=== PATIENT | female | born 1965 | race Two or more races ===

== ENCOUNTER 2024-08-09 17:44 | Emergency (ER) | payer MEDICAID, SELFPAY ==
[2024-08-09 18:02] VITALS: BP 138/79; PULSE 65; RESP 17; TEMP 37; O2SAT 99; BMI 44.4
--- NOTE | 2024-08-09 18:23 | XR_ITS ---
Examination: Knee, left , 3 views Technique: Knee AP, lateral, oblique 3 views Date and time of exam: Her and 1903 hrs. Indications: Patient fell today with injury to the knee, knee pain. 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
--- NOTE | 2024-08-09 18:24 | EDNOTE_ITS ---
Lower Extremity Injury RME/HPI General Chief Complaint: Extremity Injury, Lower Stated Complaint: LEFT KNEE PAIN S/P INJURY Time Seen by Provider: 08/09/24 18:20 Source: patient Arrival date/time: 08/09/24 17:44 59-year-old female with past medical history of prediabetes and hypertension presents emergency department complaining of left knee pain status post injury while walking down steps. Patient reports did not suffer fall but felt her left knee twist as she came downstairs. Patient denies any fever, chills, nausea vomiting, shortness of breath, or any other associated symptom. Mode of arrival: ambulatory Limitations: no limitations Related Data Previous Rx's ?Medication ?Instructions ?Recorded ibuprofen 600 mg tablet 600 mg PO Q8H PRN pain #20 tabs 08/09/24 Allergies Allergy/AdvReac Type Severity Reaction Status Date / Time No Known Allergies Allergy Verified 08/09/24 17:45 Review of Systems Review of Systems Systems Reviewed: All systems reviewed, normal except as documented Constitutional Constitutional: Reports system reviewed and no additional complaints, except as documented, Denies body ache(s), Denies chills and Denies fever(s) Eyes Eyes: Reports system reviewed and no additional complaints, except as documented and Denies change in vision ENT Ears, Nose, Mouth, and Throat: Reports system reviewed and no additional complaints, except as documented, Denies disequilibrium, Denies dizziness, Denies sore throat and Denies vertigo Cardiovascular Cardiovascular: Reports system reviewed and no additional complaints, except as documented, Denies chest pain and Denies dyspnea Respiratory Respiratory: Reports system reviewed and no additional complaints, except as documented, Denies chest congestion, Denies cough and Denies dyspnea Gastrointestinal Gastrointestinal: Reports system reviewed and no additional complaints, except as documented, Denies abdominal pain, Denies nausea and Denies vomiting Musculoskeletal Musculoskeletal: Reports system reviewed and no additional complaints, except as documented, Denies abnormal gait and Reports arthralgias Integumentary/Breasts Skin/Breast: Reports system reviewed and no additional complaints, except as documented, Denies erythema, Denies rash and Denies wounds Neurologic Neurologic: Reports system reviewed and no additional complaints, except as documented, Denies abnormal gait, Denies disequilibrium, Denies dizziness and Denies vertigo Past Medical History Social History SMOKING STATUS: Never smoker ED Exam General Limitations: Present no limitations General appearance: Present alert and in no apparent distress Head Head exam: Present atraumatic Eye Eye exam: Present normal appearance, PERRL and EOMI ENT ENT exam: Present normal exam, normal oropharynx and mucous membranes moist Neck Neck exam: Present normal inspection, full ROM and trachea midline Chest Chest inspection: Present normal inspection and symmetric chest wall rise Respiratory Respiratory exam: Present normal lung sounds bilaterally Cardiovascular Cardiovascular exam: Present regular rate, normal rhythm and normal heart sounds Abdominal Exam Abdominal exam: Present soft and normal bowel sounds Extremities Exam Extremities exam: Present normal inspection and full ROM Expanded Lower Extremity Exam Knee exam: Present full ROM (Limited active range of motion left knee.), tenderness (Left knee) and swelling (+1 left knee) Gait: observed and limited by pain Back Exam Back exam: Present normal inspection and full ROM Neurological Exam Neurological exam: Present alert, oriented X3 and CN II-XII intact Psychiatric Psychiatric exam: Present normal affect and normal mood Skin Skin exam: Present warm, dry, intact and normal color Course Quality Measures none Orders Category Date Time Status XR knee comp LT 4V Stat Exams 08/09/24 18:23 Completed Ibuprofen Tab [Motrin Tab] Med 08/09/24 18:23 Discontinued 600 mg PO X1 ONE Vital Signs Vital signs: Vital Signs Temperature 98.6 F 08/09/24 18:02 Pulse Rate 65 08/09/24 18:02 Respiratory Rate 17 08/09/24 18:02 Blood Pressure 138/79 H 08/09/24 18:02 Pulse Oximetry (%) 99 08/09/24 18:02 Oxygen Delivery Method Room Air 08/09/24 18:02 99% room air within normal limits Extremity Injury, Lower MDM Narrative MDM Narrative:: 59-year-old female with past medical history of prediabetes and hypertension presents emergency department complaining of left knee pain status post injury while walking down steps. Patient reports did not suffer fall but felt her left knee twist as she came downstairs. Patient denies any fever, chills, nausea vomiting, shortness of breath, or any other associated symptom. Patient GCS 15 ambulating independently with steady gait but does report some pain. Left lower extremity limited active range of motion and lower extremity neurovascularly intact. X-ray of left knee findings left knee effusion with soft tissue swelling. Patient has knee brace from home and declined crutches or knee immobilizer. Patient instructed to follow-up with primary care provider and request MRI for possible ligamentous or meniscus injury. Instructed to return to emergency department for any worsening symptoms or as needed. Patient data External records reviewed:: None Clinical information provided by:: patient and family Social determinants that could affect healthcare access:: none Patient has the following chronic illnesses:: See chart How is presenting disease/condition affected by chronic disease/condition?: uneffected by Evaluation data The following diagnostics were reviewed and interpreted by me:: radiology exam(s) Lab and/or radiology exams considered but not ordered:: Ordered Interpretation Summary: Interpreted by me Medications / Prescriptions Medications or Prescriptions considered but not ordered:: Ordered Medication administrations:: Medication Administration History Discontinued Medications Ibuprofen (Ibuprofen Tab 600 Mg Tablet) 600 mg PO X1 ONE Stop: 08/09/24 18:24 Last Admin: 08/09/24 18:37 Dose: 600 mg Documented By: OA Given Consultations Consultation(s) initiated? (list below): No Diagnosis Extremity Injury, Lower Differential Diagnosis: acute internal derangement of knee and other (Meniscus tear, ligament tear) Most likely diagnosis given after review of the tests above:: Knee sprain Knee effusion Admission Indicated Admission indicated?: not indicated Admission Request Was there a request for admission?: No Disposition Plan Disposition Plan: Discharge Discharge Attestation Discharge Attestation: The patient and all family members were given an opportunity to ask questions and understood the discharge instructions. Discharge instructions specifically effects, indications for sooner follow up or return to the emergency department, and the expected course of current diagnosis. Patient condition: Stable Discharge Plan Plan Patient Disposition: HOME (Self Care) Disposition Comment: Stable Prescriptions/Referrals Prescriptions/Med Rec: New ibuprofen 600 mg tablet 600 mg PO Q8H PRN (Reason: pain) Qty: 20 0RF Referrals: Dewayne ([facility])Kiya PA-C [Primary Care Provider] - In 1 week Problem List Clinical Impression: Knee effusion, left, Left knee sprain Patient/Caregiver Discharge Instructions Discharge Activity: activity as tolerated Education Materials: ED Knee Effusion, ED Knee Sprain Additional Instructions: Take ibuprofen as needed for pain. Keep using knee brace as tolerated. Follow- up with primary care provider in 2 to 3 days and request MRI of left knee if symptoms persist. Return to emergency department for any worsening symptoms or as needed. Print Language: Malay Stand Alone Forms: Fariha Award Info., Patient Portal Info Letter DAYDAY/RESIDENT CARE ASSOCIATE Supervising Physician DAYDAY/RESIDENT CARE ASSOCIATE Supervising Physician: Dr. Kumar
[2024-08-09] MEDS: IBUPROFEN TAB 600 MG TABLET PO (18:37)
== END 2024-08-09 20:16 | disposition home or self-care (01) ==
PROVIDERS: Emergency Provider Emergency Medicine; PCP Physician Assistant
DX: S83.92XA Sprain of unspecified site of left knee, initial encounter (principal); X50.1XXA Overexertion from prolonged static or awkward postures, initial encounter; Y93.01 Activity, walking, marching and hiking
CPT/HCPCS: 73562; 73564; 99283; A9270

== ENCOUNTER → 2024-10-04 | Outpatient (CLI) | payer MEDICAID, SELFPAY ==
--- NOTE | 2024-10-04 07:30 | XR_ITS ---
Exam: MRI knee without contrast, left Date and time of exam: October 04, 2024 0742 hours INDICATIONS: Patient fell off a ladder August 08, 2024 with injury to the knee, increasing knee pain and instability joint pain swelling stiffness decreased range of motion Technique: Multiple axial, coronal, and sagittal sections on the knee have been obtained. T2-Weighted sagittal, fat-suppressed images, TR 3,500, TE 62, T2 weighted coronal fat-saturated images, TR 3,500, TE 62 Proton density sagittal sections, TR 1800, TE 31. T-1 weighted coronal images, TR 524, TE 13.0 Findings: Medial meniscus anterior horn horizontal linear tear communicating inner margin. Medial meniscus, body replaced by isointense signal and extruded from the joint space, truncation intermargin. Posterior horn medial meniscus truncation inner margin, oblique linear tear communicating inferior articular surface near the inner margin. Lateral meniscus anterior horn is intact Lateral meniscus, body is intact Posterior horn lateral meniscus is intact Anterior cruciate ligament high-grade sprain Posterior cruciate ligament appears intact. Knee effusion is small. Quadriceps and patellar tendons appear intact. There is no evidence of tendinosis. Inflammatory change or fracture of Hoffa's fat pad is not seen. Medial patellar facet demonstrates moderate thinning. Lateral patellar facet cartilage demonstrates moderate thinning. Trochlear cartilage demonstrates moderate thinning. Marrow signal adequate. Medial collateral ligament appears intact. No meniscocapsular separation is seen. Illiotibial band and fibular collateral ligament are intact. Biceps femoris tendons appear intact. Medial femoral condylar articular cartilage demonstrates severe thinning. Lateral femoral condylar articular cartilage demonstratesmoderate thinning. Tibial plateau cartilage demonstrates severe medial thinning. Impression: Extensive medial meniscus tears High-grade sprain anterior cruciate ligament Severe thinning cartilage medial joint space
== END | disposition home or self-care (01) ==
PROVIDERS: PCP Nurse Practitioner Primary Care; Referring Provider Nurse Practitioner Primary Care; Visit Provider Nurse Practitioner Primary Care
DX: S83.242A Other tear of medial meniscus, current injury, left knee, initial encounter (principal); S83.512A Sprain of anterior cruciate ligament of left knee, initial encounter; X58.XXXA Exposure to other specified factors, initial encounter; M25.862 Other specified joint disorders, left knee
CPT/HCPCS: 73721

== ENCOUNTER → 2024-12-09 | Outpatient (CLI) | payer MEDICAID, SELFPAY ==
--- NOTE | 2024-12-09 09:45 | XR_ITS ---
Examination: Screening digital mammography, bilateral Computer aided detection 3-D breast Tomosynthesis, bilateral Date and time of exam: December 09, 2024 0950 hours No priors Indication: Screening Technique: Nonmagnified MLO, CC views of the breasts to been obtained, reconstructed from 3-D Tomosynthesis images. R2 computer aided detection program utilized for evaluation of suspicious masses and/or abnormal calcifications. 3-D Tomosynthesis images obtained. Findings: Scattered areas of fibroglandular density Benign calcifications including benign vascular calcifications. No suspicious masses Impression: BI-RADS category II: Benign Findings. Recommend 1 year follow-up mammogram.
== END | disposition home or self-care (01) ==
LOC: CDIM 09:36
PROVIDERS: PCP Nurse Practitioner Primary Care; Referring Provider Nurse Practitioner Primary Care; Visit Provider Nurse Practitioner Primary Care
DX: Z12.31 Encounter for screening mammogram for malignant neoplasm of breast (principal); R92.323 Mammographic fibroglandular density, bilateral breasts; R92.1 Mammographic calcification found on diagnostic imaging of breast
CPT/HCPCS: 77063; 77067

== ENCOUNTER 2025-01-20 13:23 | Outpatient (AMB) | payer MEDICAID, SELFPAY ==
--- NOTE | 2025-01-20 13:44 | PD.ORTHCLVIS ---
Vital signs 01/20/25 13:45 Height 1.5 m Height Method Stated Weight 90.832 kg Weight Measurement Method Standing Scale BMI 40.4 BP 124/85 H Blood Pressure Source Automatic Cuff Blood Pressure Location Left Upper Arm Position Sitting Respiration 19 Pulse 62 Pulse Source Monitor Temp 97.8 F Temp Source Temporal Artery Scan Pulse Oximetry (%) 96 Oxygen Delivery Method Room Air Med/Allergies Allergies & Medications Allergies No Known Allergies Allergy (Verified 01/20/25 13:46) Medication Reconciliation ibuprofen 600 mg tablet 600 mg PO Q8H PRN pain #20 tabs 08/09/24 [Rx Confirmed 01/20/25] calcium carbonate 600 mg PO QDAY 01/20/25 [History Confirmed 01/20/25] fenofibrate micronized 130 mg capsule 130 mg PO QDAY 01/20/25 [History Confirmed 01/20/25] ibuprofen 600 mg tablet 600 mg PO Q8H PRN 01/20/25 [History Confirmed 01/20/25] lidocaine 4 % topical patch (AsperFlex (lidocaine)) 1 patch topical BID PRN 01/20/25 [History Confirmed 01/20/25] Exam Exam Patient is in no acute distress and is cooperative with the examination today. Breathing is nonlabored. Patient has a normal mood and affect. Bilateral extremities were evaluated and demonstrates sensation intact to light touch. Palpable pedal pulses are present. No significant edema is present. Bilateral hips were examined. The patient has no pain with log roll of the hips. Internal rotation to 30 degrees and external rotation to 30 degrees is painless. Negative FADIR. Right knee was examined today. The right knee is in reasonable alignment. Range of motion from 0-120 degrees. Knee is stable to varus and valgus as well as AP translation with <5mm. Patient has a negative McMurrays. There is no pain with patellofemoral compression and no crepitus noted. The knee is nontender to palpation. Left knee was examined today. The left knee is in varus alignment. Range of motion from 0-115 degrees. Knee is stable to varus and valgus as well as AP translation with <5mm. Patient has a negative McMurrays. There is no pain with patellofemoral compression and no crepitus noted. The knee is tender to palpation medially. Left kneeX-rays demonstrate significant arthritis medially. These are nonweightbearing films Assessment and Plan Problem List (1) Arthritis of left knee: Status: Acute Plan: Patient is a pleasant 59-year-old female with left knee pain and left knee arthritis. She needs weightbearing films. We will likely do conservative management. I will get her set up for cortisone injections at the next visit. Clarification that No cortisone injection was given as the patient would like to hold off and needs authorization Office Procedures GNS Level of Care Nursing/Assessment Patient Status: Initial/New Patient Nursing Assessment/Reassesment: Medication Reconciliation, Update PMH in EMR and Vital Signs Coordination of Care: Complex Care and Chronic Disease 1-5, Education Complex Pt/Fam, Consent,records obtained, informed consent, 1 Ins Authorization, Lab and Imaging orders, Results/Orders obtained and Staff clarify orders New Patient Charge New Patient Point Assignment: 1124 New Patient Point Charge: CHIEF ULTRASOUND TECHNOLOGIST Level 4 ([id number]) MA Intake Visit Data Collection New Patient or Established: Established Patient (seen at [facility] within 3 years) Reason for Visit:: LEFT KNEE PAIN Seen by Clinical Staff ONLY (RN/MA): No Verbal consent obtained for Telemed visit?: No Inventory Assistant Required: No PCP or OBGYN visit in last 3 months: Yes Hx Now: No Do You Feel Safe at Home: Yes Authorities Contacted: N/A Questionairres Past Medical History Past Medical History Have you ever been diagnosed with any of the following: Subjective Visit Visit for: new patient and knee Immunization / Flu Flu Vaccine in the Last 12 Months: Yes Flu Vaccine Exclusion Criteria: Already Received History of Present Illness Chief complaint: LEFT KNEE PAIN Patient is a pleasant 59-year-old female with a left knee pain and left knee arthritis. This is been ongoing for several years. He has tried medications and anti-inflammatories only. Has not had any injections, physical therapy, or any home exercises. She reports that her ambulation is getting severely limited because of the pain Personal History Red flag PMH: BMI BMI Counceling provided: Yes Pain Pain level (0-10): 8 Pain duration: ALL DAY Pain location: inside (medial), outside (lateral) and anterior Pain quality: sharp, dull and aching Pain timing: night, increases with activity and stairs Associated signs & symptoms: numbness and weakness Ambulatory data Ambulatory device: none Treatments Improvement with previous injections: No Improvement with PT: No Improvement with NSAIDS: no Review of Systems Review of Systems: All systems negative unless otherwise noted in HPI.
[2025-01-20 13:45] VITALS: BP 124/85; PULSE 62; RESP 19; TEMP 36.6; O2SAT 96; BMI 40.4
--- NOTE | 2025-01-20 14:00 | XR_ITS ---
Examination: Left knee 4 views TECHNIQUE: Standing PA oblique lateral axial left knee 4 views Exam date and time: January 20, 2025 1411 hours INDICATIONS: Left knee pain 5 months. FINDINGS: Advanced narrowing medial joint space left knee Significant osteoarthritis lateral and patellofemoral joints No patellar dislocation IMPRESSION: Advanced tricompartment osteoarthritis
== END 2025-01-20 14:03 | disposition home or self-care (01) ==
LOC: HODSRG 13:23
PROVIDERS: PCP Nurse Practitioner Primary Care; Referring Provider Nurse Practitioner Primary Care; Supervising Provider Orthopaedic Surgery Adult Reconstructive Orthopaedic Surgery; Visit Provider Orthopaedic Surgery Adult Reconstructive Orthopaedic Surgery
DX: M17.12 Unilateral primary osteoarthritis, left knee (principal); M25.562 Pain in left knee
CPT/HCPCS: 73564; 99204; G0463

== ENCOUNTER 2025-02-03 08:30 | Outpatient (AMB) | payer MEDICAID, SELFPAY ==
[2025-02-03 08:42] VITALS: BP 121/79; PULSE 58; RESP 18; TEMP 37.1; O2SAT 96; BMI 40.7
--- NOTE | 2025-02-03 08:42 | PD.ORTHCLVIS ---
Vital signs 02/03/25 08:42 Height 1.5 m Height Method Stated Weight 91.739 kg Weight Measurement Method Standing Scale BMI 40.7 BP 121/79 Blood Pressure Source Automatic Cuff Blood Pressure Location Right Upper Arm Position Sitting Respiration 18 Pulse 58 L Pulse Source Monitor Temp 98.7 F Temp Source Temporal Artery Scan Pulse Oximetry (%) 96 Oxygen Delivery Method Room Air Med/Allergies Allergies & Medications Allergies No Known Allergies Allergy (Verified 02/03/25 08:43) Medication Reconciliation ibuprofen 600 mg tablet 600 mg PO Q8H PRN pain #20 tabs 08/09/24 [Rx Confirmed 02/03/25] calcium carbonate 600 mg PO QDAY 01/20/25 [History Confirmed 02/03/25] fenofibrate micronized 130 mg capsule 130 mg PO QDAY 01/20/25 [History Confirmed 02/03/25] ibuprofen 600 mg tablet 600 mg PO Q8H PRN 01/20/25 [History Confirmed 02/03/25] lidocaine 4 % topical patch (AsperFlex (lidocaine)) 1 patch topical BID PRN 01/20/25 [History Confirmed 02/03/25] Exam Exam Patient is in no acute distress and is cooperative with the examination today. Breathing is nonlabored. Patient has a normal mood and affect. Bilateral extremities were evaluated and demonstrates sensation intact to light touch. Palpable pedal pulses are present. No significant edema is present. Bilateral hips were examined. The patient has no pain with log roll of the hips. Internal rotation to 30 degrees and external rotation to 30 degrees is painless. Negative FADIR. Right knee was examined today. The right knee is in reasonable alignment. Range of motion from 0-120 degrees. Knee is stable to varus and valgus as well as AP translation with <5mm. Patient has a negative McMurrays. There is no pain with patellofemoral compression and no crepitus noted. The knee is nontender to palpation. Left knee was examined today. The left knee is in varus alignment. Range of motion from 0-115 degrees. Knee is stable to varus and valgus as well as AP translation with <5mm. Patient has a negative McMurrays. There is no pain with patellofemoral compression and no crepitus noted. The knee is tender to palpation medially. Left kneeX-rays demonstrate significant arthritis medially. There is significant varus deformity as well Assessment and Plan Problem List (1) Arthritis of left knee: Status: Acute Plan: Patient is a pleasant 59-year-old female with left knee pain and left knee arthritis. We discussed cortisone injections as well as weight loss. She has tried anti-inflammatories and has not had great relief Recommend knee cortisone injection as patient would like to proceed with conservative treatment at this time. The risks and benefits of the procedure were reviewed with the patient and patient gave verbal consent to continue with the procedure. Procedure: performed by Dr. Block Using sterile technique the left knee was thoroughly prepped with alcohol, and approximately 1 cc of Kenalog 40 mg/mL and 4 cc of 1% lidocaine was injected without resistance into the medial tibial femoral joint space. The patient tolerated the procedure. Office Procedures GNS Level of Care Nursing/Assessment Patient Status: Established Patient Nursing Assessment/Reassesment: Medication Reconciliation, Update PMH in EMR and Vital Signs Coordination of Care: Complex Care and Chronic Disease 1-5, Education Complex Pt/Fam, Consent,records obtained, informed consent, Results/Orders obtained and Staff clarify orders Special Needs: Language special needs (EMIRATI ) Established Patient Charge Established Patient Point Assignment: 95 Established Patient Point Charge: EP Level 3 (80-115) Surgical Proc/IM SQ injection Major Surgical Procedure: Yes (KNEE INJECTION) Medication Given Medication Given Medication Given: Yes Documented Dose Given: 4 Route: Infiitration Medication Given Medication Given Medication Given: Yes Documented Dose Given: 1 Route: Infiitration Office Meds Xylocaine 10 mg/mL (1 %) injection solution Performing Provider: Agus Block MD Performing Location: [facility] Administered by: Agus Block MD on 02/03/25 08:58 Dose Route Admin Location Dispensed Lot Number Expiration Date [facility] Quality Systems Technician 20 mL Infiltration 20 mL [id number] 06/21/28 89230-504-56 [employer] triamcinolone acetonide 40 mg/mL suspension for injection Performing Provider: Agus Block MD Performing Location: [facility] Administered by: Agus Block MD on 02/03/25 08:58 Dose Route Admin Location Dispensed Lot Number Expiration Date [facility] Quality Systems Technician 40 mg Infiltration KNEE 1 mL [id number] 09/20/26 0104-1826-91 TEVA PARENTERAL MA Intake Visit Data Collection New Patient or Established: Established Patient (seen at [facility] within 3 years) Reason for Visit:: FU XRAYS/LT KNEE INJECTION Seen by Clinical Staff ONLY (RN/MA): No Assistant Signal Maintainer Required: Yes PCP or OBGYN visit in last 3 months: Yes Hx Now: No Do You Feel Safe at Home: Yes Authorities Contacted: N/A Questionairres Past Medical History Past Medical History Have you ever been diagnosed with any of the following: Respiratory Problems Smoking: No Smoking Cessation Counseling: No Smoking Exposure: No Tobacco Use: No Subjective Visit Visit for: follow up visit and knee (LEFT KNEE ) Immunization / Flu Flu Vaccine in the Last 12 Months: Yes Flu Vaccine Exclusion Criteria: Already Received History of Present Illness Chief complaint: Left knee pain Patient is a pleasant 59-year-old female with a left knee pain and left knee arthritis. This is been ongoing for several years. He has tried medications and anti-inflammatories only. Has not had any injections, physical therapy, or any home exercises. She reports that her ambulation is getting severely limited because of the pain. Personal History Red flag PMH: none BMI Counceling provided: Yes Pain Pain level (0-10): 8 Pain duration: 5 MONTHS Pain location: anterior and posterior Pain quality: sharp and burning Pain timing: increases with activity Associated signs & symptoms: numbness, weakness and stiffness Ambulatory data Ambulatory device: none Walking distance (minutes): 20 Treatments Improvement with previous injections: No Improvement with PT: No Improvement with NSAIDS: no Review of Systems Review of Systems: All systems negative unless otherwise noted in HPI.
== END 2025-02-03 08:58 | disposition home or self-care (01) ==
PROVIDERS: PCP Nurse Practitioner Primary Care; Referring Provider Nurse Practitioner Primary Care; Supervising Provider Orthopaedic Surgery Adult Reconstructive Orthopaedic Surgery; Visit Provider Orthopaedic Surgery Adult Reconstructive Orthopaedic Surgery
DX: M17.12 Unilateral primary osteoarthritis, left knee (principal); M25.562 Pain in left knee
CPT/HCPCS: 20610; 99213; J3301; J3490; G0463

== ENCOUNTER 2025-05-24 09:14 | Outpatient (AMB) | payer MEDICAID, SELFPAY ==
--- NOTE | 2025-05-24 09:23 | PD.ORTHCLVIS ---
Vital signs 05/24/25 09:48 Height 1.5 m Height Method Measured Weight 83.092 kg Weight Measurement Method Standing Scale BMI 36.9 BP 113/77 Blood Pressure Source Automatic Cuff Blood Pressure Location Left Upper Arm Position Sitting Respiration 20 Pulse 56 L Pulse Source Monitor Temp 97.3 F Temp Source Temporal Artery Scan Pulse Oximetry (%) 98 Oxygen Delivery Method Room Air Med/Allergies Allergies & Medications Allergies No Known Allergies Allergy (Verified 05/24/25 09:48) Medication Reconciliation ibuprofen 600 mg tablet 600 mg PO Q8H PRN pain #20 tabs 08/09/24 [Rx Confirmed 05/24/25] calcium carbonate 600 mg PO QDAY 01/20/25 [History Confirmed 05/24/25] fenofibrate micronized 130 mg capsule 130 mg PO QDAY 01/20/25 [History Confirmed 05/24/25] ibuprofen 600 mg tablet 600 mg PO Q8H PRN 01/20/25 [History Confirmed 05/24/25] lidocaine 4 % topical patch (AsperFlex (lidocaine)) 1 patch topical BID PRN 01/20/25 [History Confirmed 05/24/25] Exam Exam Patient is in no acute distress and is cooperative with the examination today. Breathing is nonlabored. Patient has a normal mood and affect. Bilateral extremities were evaluated and demonstrates sensation intact to light touch. Palpable pedal pulses are present. No significant edema is present. Bilateral hips were examined. The patient has no pain with log roll of the hips. Internal rotation to 30 degrees and external rotation to 30 degrees is painless. Negative FADIR. Right knee was examined today. The right knee is in reasonable alignment. Range of motion from 0-120 degrees. Knee is stable to varus and valgus as well as AP translation with <5mm. Patient has a negative McMurrays. There is no pain with patellofemoral compression and no crepitus noted. The knee is nontender to palpation. Left knee was examined today. The left knee is in varus alignment. Range of motion from 0-115 degrees. Knee is stable to varus and valgus as well as AP translation with <5mm. Patient has a negative McMurrays. There is no pain with patellofemoral compression and no crepitus noted. The knee is tender to palpation medially. Left knee X-rays demonstrate significant arthritis medially. There is significant varus deformity as well Assessment and Plan Problem List (1) Arthritis of left knee: Status: Acute Plan: Patient is a pleasant 59-year-old female with left knee pain and left knee arthritis. We discussed cortisone injections as well as weight loss. She has tried anti-inflammatories and has not had great relief Recommend knee cortisone injection as patient would like to proceed with conservative treatment at this time. The risks and benefits of the procedure were reviewed with the patient and patient gave verbal consent to continue with the procedure. Procedure: performed by Dr. Block Using sterile technique the left knee was thoroughly prepped with alcohol, and approximately 1 cc of Depo-Medrol 80mg/mL and 4 cc of 0.2% ropivacaine was injected without resistance into the medial tibial femoral joint space. The patient tolerated the procedure. Office Procedures GNS Level of Care Nursing/Assessment Patient Status: Established Patient Nursing Assessment/Reassesment: Medication Reconciliation, Orthostatic Vitals, Update PMH in EMR and Vital Signs Coordination of Care: Complex Care and Chronic Disease 1-5, Education Complex Pt/Fam, Consent,records obtained, informed consent, Results/Orders obtained and Staff clarify orders Special Needs: Language special needs Established Patient Charge Established Patient Point Assignment: 105 Established Patient Point Charge: EP Level 3 (80-115) Surgical Proc/IM SQ injection Major Surgical Procedure: Yes (KNEE INJECTION ) Medication Given Medication Given Medication Given: Yes Documented Dose Given: 1 Route: Infiitration Medication Given Medication Given Medication Given: Yes Documented Dose Given: 4 Route: Infiitration Office Meds methylprednisolone acetate 80 mg/mL suspension for injection Performing Provider: Agus Block MD Performing Location: [facility] Administered by: Agus Block MD on 05/24/25 10:21 Dose Route Admin Location Dispensed Lot Number Expiration Date [facility] [employer] 80 mg intra-articular KNEE 1 mL [id number] 02/19/27 [address]-2 [employer] ropivacaine (PF) 2 mg/mL (0.2 %) injection solution Performing Provider: Agus Block MD Performing Location: [facility] Administered by: Agus Block MD on 05/24/25 10:21 Dose Route Admin Location Dispensed Lot Number Expiration Date [facility] [employer] 20 mL Infiltration KNEE 20 mL [id number] 10/22/27 85084-658-94 [facility] Intake Visit Data Collection New Patient or Established: Established Patient (seen at [facility] within 3 years) Reason for Visit:: LEFT KNEE INJECTION Seen by Clinical Staff ONLY (RN/MA): No Park Services Specialist Required: Yes PCP or OBGYN visit in last 3 months: Yes Hx Now: No Do You Feel Safe at Home: Yes Authorities Contacted: N/A Questionairres Past Medical History Past Medical History Have you ever been diagnosed with any of the following: Respiratory Problems Smoking: No Smoking Cessation Counseling: No Smoking Exposure: No Tobacco Use: No Subjective Visit Visit for: follow up visit and knee Immunization / Flu Flu Vaccine in the Last 12 Months: Yes Flu Vaccine Exclusion Criteria: Already Received History of Present Illness Chief complaint: LEFT KNEE INJECTION Patient is a pleasant 59-year-old female with a left knee pain and left knee arthritis. This is been ongoing for several years. He has tried medications and anti-inflammatories only. She has had one injection, physical therapy, or any home exercises. She reports that her ambulation is getting severely limited because of the pain. Personal History Red flag PMH: none BMI Counceling provided: Yes Pain Pain level (0-10): 8 Pain duration: 5 MONTHS Pain location: anterior and posterior Pain quality: sharp and burning Pain timing: increases with activity Associated signs & symptoms: numbness, weakness and stiffness Ambulatory data Ambulatory device: none Walking distance (minutes): 20 Treatments Number of previous injections: 1 Improvement with previous injections: Yes Improvement with PT: No Improvement with NSAIDS: no Review of Systems Review of Systems: All systems negative unless otherwise noted in HPI.
[2025-05-24 09:48] VITALS: BP 113/77; PULSE 56; RESP 20; TEMP 36.3; O2SAT 98; BMI 36.9
== END 2025-05-24 10:20 | disposition home or self-care (01) ==
LOC: HODSRG 09:14
PROVIDERS: PCP Nurse Practitioner Primary Care; Referring Provider Nurse Practitioner Primary Care; Supervising Provider Orthopaedic Surgery Adult Reconstructive Orthopaedic Surgery; Visit Provider Orthopaedic Surgery Adult Reconstructive Orthopaedic Surgery
DX: M17.12 Unilateral primary osteoarthritis, left knee (principal); M25.562 Pain in left knee
CPT/HCPCS: 20610; 99213; J1010; J2795; G0463

== ENCOUNTER 2025-08-25 10:42 | Outpatient (AMB) | payer MEDICAID, SELFPAY ==
--- NOTE | 2025-08-25 11:31 | ORTHONT_ITS ---
Vital signs 08/25/25 11:32 Height 1.5 m Height Method Measured Weight 78.698 kg Weight Measurement Method Standing Scale BMI 34.9 BP 120/76 Blood Pressure Source Automatic Cuff Blood Pressure Location Left Upper Arm Position Sitting Respiration 20 Pulse 53 L Pulse Source Monitor Temp 97.8 F Temp Source Temporal Artery Scan Pulse Oximetry (%) 98 Oxygen Delivery Method Room Air Med/Allergies Allergies & Medications Allergies No Known Allergies Allergy (Verified 08/25/25 11:33) Medication Reconciliation ibuprofen 600 mg tablet 600 mg PO Q8H PRN pain #20 tabs 08/09/24 [Rx Confirmed 08/25/25] calcium carbonate 600 mg PO QDAY 01/20/25 [History Confirmed 08/25/25] fenofibrate micronized 130 mg capsule 130 mg PO QDAY 01/20/25 [History Confirmed 08/25/25] ibuprofen 600 mg tablet 600 mg PO Q8H PRN 01/20/25 [History Confirmed 08/25/25] lidocaine 4 % topical patch (AsperFlex (lidocaine)) 1 patch topical BID PRN 01/20/25 [History Confirmed 08/25/25] Exam Exam Patient is in no acute distress and is cooperative with the examination today. Breathing is nonlabored. Patient has a normal mood and affect. Bilateral extremities were evaluated and demonstrates sensation intact to light touch. Palpable pedal pulses are present. No significant edema is present. Bilateral hips were examined. The patient has no pain with log roll of the hips. Internal rotation to 30 degrees and external rotation to 30 degrees is painless. Negative FADIR. Right knee was examined today. The right knee is in reasonable alignment. Range of motion from 0-120 degrees. Knee is stable to varus and valgus as well as AP translation with <5mm. Patient has a negative McMurrays. There is no pain with patellofemoral compression and no crepitus noted. The knee is nontender to palpation. Left knee was examined today. The left knee is in varus alignment. Range of motion from 0-115 degrees. Knee is stable to varus and valgus as well as AP translation with <5mm. Patient has a negative McMurrays. There is no pain with patellofemoral compression and no crepitus noted. The knee is tender to palpation medially. Left knee X-rays demonstrate significant arthritis medially. There is significant varus deformity as well Assessment and Plan Problem List (1) Arthritis of left knee: Status: Acute Plan: Patient is a pleasant 59-year-old female with left knee pain and left knee arthritis. We discussed cortisone injections as well as weight loss. She has tried anti-inflammatories and has not had great relief Recommend knee cortisone injection as patient would like to proceed with conservative treatment at this time. The risks and benefits of the procedure were reviewed with the patient and patient gave verbal consent to continue with the procedure. Procedure: performed by Dr. Block Using sterile technique the left knee was thoroughly prepped with alcohol, and approximately 1 cc of Depo-Medrol 80mg/mL and 4 cc of 0.2% ropivacaine was injected without resistance into the medial tibial femoral joint space. The patient tolerated the procedure. Office Procedures GNS Level of Care Nursing/Assessment Patient Status: Established Patient Nursing Assessment/Reassesment: Medication Reconciliation, Update PMH in EMR and Vital Signs Coordination of Care: Complex Care and Chronic Disease 1-5, Education Complex Pt/Fam, Consent,records obtained, informed consent, Results/Orders obtained and Staff clarify orders Special Needs: Language special needs Established Patient Charge Established Patient Point Assignment: 95 Established Patient Point Charge: EP Level 3 (80-115) Surgical Proc/IM SQ injection Minor Surgical Procedure: Yes (KNEE INJECTION) Medication Given Medication Given Medication Given: Yes Documented Dose Given: 1 Route: Infiitration Medication Given Medication Given Medication Given: Yes Documented Dose Given: 4 Route: Infiitration Office Meds methylprednisolone acetate 80 mg/mL suspension for injection Performing Provider: Agus Block MD Performing Location: [facility] Administered by: Agus Block MD on 08/25/25 11:35 Dose Route Admin Location Dispensed Lot Number Expiration Date Pack age [facility] [employer] 80 mg intra-articular KNEE 1 mL [id number] 05/22/27 [address]-5 [id number] [employer] ropivacaine (PF) 2 mg/mL (0.2 %) injection solution Performing Provider: Agus Block MD Performing Location: [facility] Administered by: Agus Block MD on 08/25/25 11:35 Dose Route Admin Location Dispensed Lot Number Expiration Date Pack age [facility] [employer] 20 mL Infiltration KNEE 20 mL [id number] 10/22/27 85437-309-34 [id number] [facility] Intake Visit Data Collection New Patient or Established: Established Patient (seen at [facility] within 3 years) Reason for Visit:: 3 MONTH F/U LT KNEE INJECTION Seen by Clinical Staff ONLY (RN/MA): No Webmaster Required: Yes PCP or OBGYN visit in last 3 months: Yes Hx Now: No Do You Feel Safe at Home: Yes Authorities Contacted: N/A Questionairres Past Medical History Past Medical History Have you ever been diagnosed with any of the following: Respiratory Problems Smoking: No Smoking Cessation Counseling: No Smoking Exposure: No Tobacco Use: No Subjective Visit Visit for: follow up visit and knee Immunization / Flu Flu Vaccine in the Last 12 Months: Yes Flu Vaccine Exclusion Criteria: Already Received History of Present Illness Chief complaint: LEFT KNEE INJECTION Patient is a pleasant 59-year-old female with a left knee pain and left knee arthritis. This is been ongoing for several years. He has tried medications and anti-inflammatories only. She has had 2 injections, physical therapy, or any home exercises. She reports that her ambulation is getting severely limited because of the pain. Personal History Red flag PMH: none BMI Counceling provided: Yes Pain Pain level (0-10): 8 Pain duration: 5 MONTHS Pain location: anterior and posterior Pain quality: sharp and burning Pain timing: increases with activity Associated signs & symptoms: numbness, weakness and stiffness Ambulatory data Ambulatory device: none Walking distance (minutes): 20 Treatments Number of previous injections: 1 Improvement with previous injections: Yes Improvement with PT: No Improvement with NSAIDS: no Review of Systems Review of Systems: All systems negative unless otherwise noted in HPI.
[2025-08-25 11:32] VITALS: BP 120/76; PULSE 53; RESP 20; TEMP 36.6; O2SAT 98; BMI 34.9
== END 2025-08-25 11:34 | disposition home or self-care (01) ==
LOC: HODSRG 10:42
PROVIDERS: PCP Nurse Practitioner Primary Care; Referring Provider Nurse Practitioner Primary Care; Supervising Provider Orthopaedic Surgery Adult Reconstructive Orthopaedic Surgery; Visit Provider Orthopaedic Surgery Adult Reconstructive Orthopaedic Surgery
DX: M17.12 Unilateral primary osteoarthritis, left knee (principal); M25.562 Pain in left knee
CPT/HCPCS: 20610; 99213; J1010; J2795; G0463